=== PATIENT | female | born 1990 | race Caucasian/White ===

== ENCOUNTER → 2024-02-21 | Day surgery (SDC) | payer BC ==
[~2024-02-21] MED LIST: ACETAMINOPHEN 1000 MG/100 ML 100 ML IV ONE; B12 ACTIVE1000 MCG; CELEBREX100 MG PO; CLARITIN10 MG PO; DEXAMETHASONE SOD PHOS 10 MG/1 ML VIAL ONE; FISH OIL 1,0001 EAC7; FLONASE ALLERG9.9 ML INH; IMITREX100 MG PO; IMMUNOTHERAPY; LAMICTAL200 MG PO; LATUDA40 MG PO; LEXAPRO20 MG PO; LIDOCAINE 1% W/EPINEPHRINE 20 ML VIAL ONE; LYRICA100 MG PO; MONTELUKAST SOD10 MG PO; PROPRANOLOL HCL10 MG PO; SUGAMMADEX SODIUM 200 MG/2 ML VIAL IV ONE; TUMERIC; VITAMIN D31 ML; [UNRECOGNIZED DRUG - REMARK]
[2024-02-21] MEDS: LACTATED RINGER'S 1,000 ML ONE (09:45)
[2024-02-21 12:10] VITALS: TEMP 98.7
[2024-02-21] MEDS: METOCLOPRAMIDE HCL 10 MG/2ML VIAL ONE (12:35)
[2024-02-21] MEDS: ONDANSETRON HCL INJ 2MG/ML 2ML 2 MG/ML VIAL ONE (12:35)
[2024-02-21] MEDS: ACETAMINOPHEN/CODEINE 300MG - 30MG TAB ONE (12:55)
[2024-02-21 13:05] VITALS: BP 111/80; PULSE 84; RESP 16; O2SAT 98
== END | disposition home or self-care (01) ==
LOC: OR 09:04
PROVIDERS: ATTEND Otolaryngology Otolaryngology/Facial Plastic Surgery
DX: E04.1 Nontoxic single thyroid nodule (principal); E06.3 Autoimmune thyroiditis; F17.290 Nicotine dependence, other tobacco product, uncomplicated; F41.9 Anxiety disorder, unspecified; F32.A Depression, unspecified; F43.10 Post-traumatic stress disorder, unspecified; F42.9 Obsessive-compulsive disorder, unspecified; F32.81 Premenstrual dysphoric disorder; G43.909 Migraine, unspecified, not intractable, without status migrainosus; I49.9 Cardiac arrhythmia, unspecified; Z79.899 Other long term (current) drug therapy
CPT/HCPCS: 60220; 81025; 88307; J0131; J1100; J2405; J2765; J7121